=== PATIENT | male | born 1940 | race Caucasian/White ===

== ENCOUNTER 2019-08-13 15:25 | Inpatient (IN) | payer OTHER ==
[~2019-08-13] VITALS: Ht 175.3 cm; Wt 94.0 kg
[~2019-08-13 15:25] MED LIST: ASPI81CH PO; ATOR20 PO; ATOR40TA PO; BRILINTA90 MG PO; CLOP75 PO; LISI5 PO; METO25ER PO; NAPR250 PO; ROSU10TA PO; TICA90TA PO
--- NOTE | 2019-08-14 06:45 | NUR ---
Ambulatory in Day Surgery History, Chart, Medications and Allergies reviewed before start of procedure.Lungs clear T/O to Auscultation. Patient confirms NPO status and agrees with scheduled surgery. Patient reports completing Chlorhexadine shower X2 prior to admission to hospital.MSSA PROTOCOL DONE X 5 DAYS. Surgical site prepped with 2% Chlorhexidine cloth wipe.NOSYN AND PERIDEX PER TOTAL JOINT PROTOCOL.
--- NOTE | 2019-08-14 07:00 | NUR ---
TYPE AND SCREEN DRAWN WITH IV INSERTION-SENT TO LAB.
--- NOTE | 2019-08-14 19:28 | NUR ---
SHIFT SUMMARY PT HAS STRUGGLED WITH N/V. THOUGHT HE WAS FEELING BETTER BUT THREW UP AFTER EATING SMALL AMOUNTS OF DINNER. PHENERGAN THEN GIVEN. PAIN MINIMAL. PT DISCUSSED ATTEMPTING TO MANAGE PAIN WITH TYLENOL AND NO OXYCODONE. PASSED THIS ALONG IN REPORT. HAD 2 SMALL ROUNDS WITH THERAPY BUT UNABLE TO AMBULATE MORE THAN TO CHAIR.
--- NOTE | 2019-08-15 04:10 | NUR ---
SHIFT SUMMARY POD 1 RTHA. PT [id number], VSS. PATIENT MEDICATED PER EMAR FOR PAIN. TOLERATING WELL, DENIES NAUSEA. PT SLEEPING IN CHAIR DURING SHIFT. POLAR AALIYAH IN PLACE, AQUACEL CDI. PT VOIDING DURING SHIFT. TOLERATING PO WELL.
[2019-08-15 04:24] LABS: BASOPHILS ABSOLUTE AUTO 0.01 K/mm3 (0.00-0.23); BASOPHILS PERCENT AUTO 0 % (0-2); EOSINOPHILS PERCENT AUTO 0 % (0-6); Hematocrit 35.9 % (37.0-53.0); Hemoglobin 11.9 g/dL (13.5-17.5); IMMATURE GRAN ABSOLUTE AUTO 0.04 K/mm3 (0.00-0.10); IMMATURE GRAN PERCENT AUTO 0 % (0-1); LYMPHOCYTES ABSOLUTE AUTO 0.71 K/mm3 (0.84-5.20); LYMPHOCYTES PERCENT AUTO 6 % (21-46); MONOCYTES ABSOLUTE AUTO 1.31 K/mm3 (0.16-1.47); MONOCYTES PERCENT AUTO 11 % (4-13); Mean Corpuscular HGB 32.4 pg (26.0-34.0); Mean Corpuscular HGB Conc 33.1 g/dL (31.5-36.5); Mean Corpuscular Volume 98 fL (80-100); Mean Platelet Volume 12.5 fL (9.1-12.4); NEUTROPHILS ABSOLUTE AUTO 9.55 K/mm3 (1.96-9.15); NEUTROPHILS PERCENT AUTO 82 % (41-73); Platelet Count 128 K/mm3 (150-400); RDW Coefficient Variation 12.2 % (11.7-14.2); RDW Standard Deviation 43.9 fL (35.1-46.3); Red Blood Cell Count 3.67 M/mm3 (4.30-5.90); White Blood Cell Count 11.62 K/mm3 (4.00-11.30)
[2019-08-15 04:41] LABS: Anion Gap 6 mmol/L (6-16); Blood Urea Nitrogen 16 mg/dL (8-24); Bun/Creatinine Ratio 24.2 (12.0-20.0); CO2, Blood 27 mmol/L (21-32); Calcium, Blood 8.3 mg/dL (8.5-10.1); Chloride, Blood 108 mmol/L (98-108); Creatinine, Blood 0.66 mg/dL (0.60-1.20); Glomerular Filtration Rate >60 (60-); Glucose, Blood 124 mg/dL (70-99); Potassium, Blood 4.6 mmol/L (3.5-5.5); Sodium, Blood 141 mmol/L (136-145)
[2019-08-15] MEDS ORDERED: TRAM50 PO (09:03)
[2019-08-15] MEDS ORDERED: ASPI81CH PO (09:04)
[2019-08-15] MEDS ORDERED: Percocet 5-3251 EACH PO (09:04)
--- NOTE | 2019-08-15 16:07 | NUR ---
DISCHARGE PT ESCORTED OUT VIA W/C. SCRIPTS AND DRSGS GIVEN. CLEARED THERAPY. VOIDING, EATING, DRINKING WELL. HOME HEALTH TO SEE PT.
== END 2019-08-15 16:03 | disposition home or self-care (01) | DRG 470 ==
LOC: SURS 08-14 05:21 → PRE IP 08-14 07:30 → SURS 08-14 09:57
PROVIDERS: ADMIT Orthopaedic Surgery
PROC: 0SR904A Replacement of Right Hip Joint with Ceramic on Polyethylene Synthetic Substitute, Uncemented, Open Approach (ICD-10-PCS; principal; 2019-08-14 07:30)
DX: M16.11 Unilateral primary osteoarthritis, right hip (principal); M06.9 Rheumatoid arthritis, unspecified; I10 Essential (primary) hypertension; E78.5 Hyperlipidemia, unspecified; I25.10 Atherosclerotic heart disease of native coronary artery without angina pectoris; I25.2 Old myocardial infarction; Z86.73 Personal history of transient ischemic attack (TIA), and cerebral infarction without residual deficits; Z87.891 Personal history of nicotine dependence
CPT/HCPCS: 36415; 72170; 80048; 85025; 86850; 86900; 86901; 88300; 97110; 97116; 97162; 97530; C1776; J0171; J0690; J0735; J1100; J1170; J1885; J2370; J2405; J2550; J2704; J2795; J3010; J7120

== ENCOUNTER 2021-05-18 12:10 | Inpatient (IN) | payer OTHER ==
[~2021-05-18] VITALS: Ht 172.7 cm; Wt 90.7 kg
[~2021-05-18 12:10] MED LIST changes: +Aspir 8181 MG PO; +Percocet 5-3251 EACH PO; +TRAM50 PO
[2021-05-18 12:59] LABS: Hematocrit 38.8 % (37.0-53.0); Hemoglobin 13.3 g/dL (13.5-17.5); Mean Corpuscular HGB 32.4 pg (26.0-34.0); Mean Corpuscular HGB Conc 34.3 g/dL (31.5-36.5); Mean Corpuscular Volume 94 fL (80-100); Mean Platelet Volume 10.7 fL (9.1-12.4); Platelet Count 119 K/mm3 (150-400); RDW Coefficient Variation 12.4 % (11.7-14.2); RDW Standard Deviation 43.7 fL (35.1-46.3); Red Blood Cell Count 4.11 M/mm3 (4.30-5.90); White Blood Cell Count 4.81 K/mm3 (4.00-11.30)
[2021-05-18 13:23] LABS: Alanine Aminotransfer (ALT/SGP 48 U/L (12-78); Albumin, Blood 2.9 g/dL (3.4-5.0); Albumin/Globulin Ratio 0.8 (0.8-1.8); Alk Phos 51 U/L (50-136); Anion Gap 7 mmol/L (6-16); Aspartate Aminotrans (AST/SGOT 69 U/L (12-37); Bilirubin, Total 0.7 mg/dL (0.1-1.0); Blood Urea Nitrogen 14 mg/dL (8-24); Bun/Creatinine Ratio 21.1 (12.0-20.0); CO2, Blood 25 mmol/L (21-32); Calcium, Blood 8.3 mg/dL (8.5-10.1); Chloride, Blood 103 mmol/L (98-108); Creatinine, Blood 0.66 mg/dL (0.60-1.20); Globulin, Blood 3.5 g/dL (2.2-4.0); Glomerular Filtration Rate >60 (60-); Glucose, Blood 130 mg/dL (70-99); Potassium, Blood 3.8 mmol/L (3.5-5.5); Sodium, Blood 135 mmol/L (136-145); Total Protein, Blood 6.4 g/dL (6.4-8.2)
[2021-05-18 13:42] LABS: SARS-Cov-2 (COVID-19) PCR, MMC POSITIVE (NEGATIVE)
[2021-05-18 13:49] LABS: BASOPHILS PERCENT MAN 0 % (0-2); EOSINOPHILS PERCENT MAN 0 % (0-6); LYMPHOCYTES ABSOLUTE MAN 0.38 K/mm3 (0.84-5.20); LYMPHOCYTES PERCENT MAN 8 % (21-46); MONOCYTES ABSOLUTE MAN 0.48 K/mm3 (0.16-1.47); MONOCYTES PERCENT MAN 10 % (4-13); NEUTROPHILS ABSOLUTE MAN 3.94 K/mm3 (1.96-9.15); SEG NEUTROPHILS PERCENT MAN 82 % (41-73); TOTAL CELLS COUNTED 100
--- NOTE | 2021-05-18 20:31 | NUR ---
a+o, gave report to noc nurse, pt able to walk with sba, continent, call light in reach, two lt via nc stating well, saline locked
[2021-05-19 05:48] LABS: BASOPHILS ABSOLUTE AUTO 0.01 K/mm3 (0.00-0.23); BASOPHILS PERCENT AUTO 0 % (0-2); EOSINOPHILS PERCENT AUTO 0 % (0-6); Hematocrit 38.6 % (37.0-53.0); Hemoglobin 13.1 g/dL (13.5-17.5); Mean Corpuscular HGB 32.2 pg (26.0-34.0); Mean Corpuscular HGB Conc 33.9 g/dL (31.5-36.5); Mean Corpuscular Volume 95 fL (80-100); Platelet Count 142 K/mm3 (150-400); RDW Coefficient Variation 12.4 % (11.7-14.2); RDW Standard Deviation 43.3 fL (35.1-46.3); Red Blood Cell Count 4.07 M/mm3 (4.30-5.90); White Blood Cell Count 6.74 K/mm3 (4.00-11.30)
[2021-05-19 05:52] LABS: IMMATURE GRAN ABSOLUTE AUTO 0.03 K/mm3 (0.00-0.10); IMMATURE GRAN PERCENT AUTO 0 % (0-1); LYMPHOCYTES PERCENT AUTO 33 % (21-46); MONOCYTES PERCENT AUTO 6 % (4-13); NEUTROPHILS PERCENT AUTO 61 % (41-73)
[2021-05-19 06:18] LABS: Alanine Aminotransfer (ALT/SGP 50 U/L (12-78); Albumin, Blood 2.6 g/dL (3.4-5.0); Albumin/Globulin Ratio 0.7 (0.8-1.8); Alk Phos 52 U/L (50-136); Anion Gap 5 mmol/L (6-16); Aspartate Aminotrans (AST/SGOT 57 U/L (12-37); Bilirubin, Total 0.7 mg/dL (0.1-1.0); Blood Urea Nitrogen 13 mg/dL (8-24); Bun/Creatinine Ratio 20.6 (12.0-20.0); CO2, Blood 27 mmol/L (21-32); Calcium, Blood 7.8 mg/dL (8.5-10.1); Chloride, Blood 102 mmol/L (98-108); Creatinine, Blood 0.63 mg/dL (0.60-1.20); Globulin, Blood 3.6 g/dL (2.2-4.0); Glomerular Filtration Rate >60 (60-); Glucose, Blood 115 mg/dL (70-99); Potassium, Blood 3.9 mmol/L (3.5-5.5); Sodium, Blood 134 mmol/L (136-145); Total Protein, Blood 6.2 g/dL (6.4-8.2)
--- NOTE | 2021-05-19 06:50 | NUR ---
SHIFT SUMMARY PATIENT ALERT AND ORIENTED. HAD NO COMPLAINTS OF PAIN. IS FEELING SHORT OF BREATH. CURRENTLY ON 6 LITERS O2 VIA NASAL CANULA. NO ACUTE ISSUES NOTED OVERNIGHT. CALL LIGHT WITHIN REACH. REPORT GIVEN TO ONCOMING RN.
[2021-05-19 08:49] LABS: BASOPHILS PERCENT MAN 0 % (0-2); EOSINOPHILS PERCENT MAN 0 % (0-6); LYMPHOCYTES ABSOLUTE MAN 1.95 K/mm3 (0.84-5.20); LYMPHOCYTES PERCENT MAN 29 % (21-46); MONOCYTES ABSOLUTE MAN 0.67 K/mm3 (0.16-1.47); MONOCYTES PERCENT MAN 10 % (4-13); NEUTROPHILS ABSOLUTE MAN 4.11 K/mm3 (1.96-9.15); SEG NEUTROPHILS PERCENT MAN 61 % (41-73); TOTAL CELLS COUNTED 100
--- NOTE | 2021-05-19 16:14 | NUR ---
PT IS A&O, PLEASANT AND CO-OP. SITTING UP TO EOB AT START OF SHIFT SETTING BED ALARM OFF. PT WITH SCD'S ON, THEREFORE BED ALARM ON FOR SAFETY. SCD'S REMOVED SO PT COULD AMBULATE TO [facility]. PT WEAK, BUT ABLE TO BE INDEPENDENT NEEDED. PT CALLED FOR ASSIST NEEDED, WHEN IV INFUSING. UP TO [facility] FOR BM. ABLE TO USE URINAL AT BS. [facility], BUT RECOVERED QUICKLY W/O DIFFICULTY OR COMPLAINT. PT TX'D TO [facility] FOR REHAB, UNTIL A LITTLE STRONGER AND ABLE TO GO HOME WITH . PT ON 6L VIA NC. RESTED WELL OFF AND ON DURING THE DAY. PT'S CALLED FOR UPDATE AND LATER SON WELL. TRANSPORT HERE AT 1600 TO TAKE PT TO [facility]. REPORT CALLED TO [facility] [id number], WAS INFORMED THAT RN WAS CHEYENNE GREENBERG AND WOULD CALL WHEN AVAILABLE. GERTRUDIS BOB, LATER CALLED BACK. REPORT GIVEN AT 1540. PT ABLE TO TX SELF TO [facility]. PLEASANT AND CO-OP, NO C/O.
--- NOTE | 2021-05-20 00:09 | NUR ---
REVIEWED PT'S INFORMATION FOR [facility] PT HAD TAKEN
--- NOTE | 2021-05-20 00:12 | NUR ---
This financial underwriter was in the chart to verify medications for at [facility] where pt was transfered today.
== END 2021-05-19 15:57 | DRG 177 ==
LOC: ER 12:10 → MEDS 14:22
PROVIDERS: Emergency Medicine; Nurse Practitioner Acute Care; Student in an Organized Health Care Education/Training Program; ADMIT Internal Medicine
PROC: 3E0DX3Z Introduction of Anti-inflammatory into Mouth and Pharynx, External Approach (ICD-10-PCS; principal; 2021-05-18)
PROC: XW033E5 Introduction of Remdesivir Anti-infective into Peripheral Vein, Percutaneous Approach, New Technology Group 5 (ICD-10-PCS; 2021-05-18)
DX: U07.1 COVID-19 (principal); J12.82 Pneumonia due to coronavirus disease 2019; J96.01 Acute respiratory failure with hypoxia; E87.1 Hypo-osmolality and hyponatremia; D69.6 Thrombocytopenia, unspecified; I10 Essential (primary) hypertension; E78.5 Hyperlipidemia, unspecified; I25.10 Atherosclerotic heart disease of native coronary artery without angina pectoris; M19.90 Unspecified osteoarthritis, unspecified site; Z79.82 Long term (current) use of aspirin; Z79.899 Other long term (current) drug therapy; Z98.890 Other specified postprocedural states; Z96.641 Presence of right artificial hip joint; Z86.73 Personal history of transient ischemic attack (TIA), and cerebral infarction without residual deficits; Z88.5 Allergy status to narcotic agent
CPT/HCPCS: 36415; 71045; 80053; 83735; 85025; 93005; 93010; 94762; 99285-25; A9270; J1650; J7030; U0004